=== PATIENT | female | born 1965 | race Caucasian/White ===

== ENCOUNTER 2020-02-01 12:18 | Outpatient (CLI) | payer BC, SELFPAY ==
--- NOTE | ~2020-02-01 | MMUS_ITS ---
EXAMINATION: MM diagnostic swapna BI w aleksandra, US breast BI complete HISTORY: Six-month follow-up targeted left breast ultrasound is recommended on 02/22/2019 bilateral d iagnostic and left complete ultrasound examinations. TECHNIQUE: Full field and spot ML, MLO and craniocaudal 3-D tomosynthesis images of both breasts were performed and synthetic 2-D images were generated. CAD analysis was submitted and interpreted. High resolution complete bilateral breast ultrasound was performed. COMPARISON: 02/22/2019 bilateral diagnostic mammography and left complete breast ultrasound 04/13/2018 bilateral diagnostic digital mammogram and complete left breast ultrasound 10/04/2017 and 02/21/2016 bilateral digital screening mammogram examinations BREAST PARENCHYMAL COMPOSITION: The breasts are heterogeneously dense, which may obscure small masses . FINDINGS: MAMMOGRAPHIC FINDINGS: No interval suspicious mass, architectural distortion, malignant calcification, skin thickening or re traction or significant new or developing density of either breast is evident. There are a few benign calcifications. ULTRASOUND: Right breast: At 2:00 near the nipple there is a tubular hypoechoic finding; there is an antiparallel component wit h mildly irregular margins. This finding measures up to 3.8 mm width and 14 mm length. Prominent vess els are noted nearby. Ultrasound-guided biopsy is recommended. Left breast: Stable probable septated cyst measuring 3 x 4.9 mm at 4:00 2 cm from nipple, unchanged s sammi 02/22/2019. At 5:00 1 cm from the nipple there is a 2.7 mm circumscribed hypoechoic lesion without internal vascu larity or suspicious shadowing. IMPRESSION: 1. Irregular hypoechoic area at right breast 2:00 near nipple, with mild irregularity, with antiparal lel configuration for portion of the lesion, with adjacent prominent vessels. This may be a soft tiss ue filled duct. Ultrasound guided biopsy is recommended to exclude malignancy. 2. Ultrasound-guided biopsy of right breast 2:00 hypoechoic tubular lesion near nipple BI-RADS category 4, suspicious findings. Dr. Bob telephoned the report and ultrasound guided biopsy recommendation of right breast 2:00 near nipple on 02/01/[address] Corrigan's Cloth Hand Patricia. Reviewed, dictated and finalized at location A. L DRILL PRESS OPERATOR IMPRESSION: 1. Irregular hypoechoic area at right breast 2:00 near nipple, with mild irregu larity, with antiparallel configuration for portion of the lesion, with adjacen t prominent vessels. This may be a soft tissue filled duct. Ultrasound guided b iopsy is recommended to exclude malignancy. 2. Ultrasound-guided biopsy of right breast 2:00 hypoechoic tubular lesion near nipple BI-RADS category 4, suspicious findings. Dr. Bob telephoned the report and ultrasound guided biopsy recommendation of r ight breast 2:00 near nipple on 02/01/[address] Corrigan's Medica l Cash Specialist Patricia.
== END 2020-02-01 12:19 | disposition home or self-care (01) ==
PROVIDERS: Visit Provider Obstetrics & Gynecology Gynecology
DX: N63.12 Unspecified lump in the right breast, upper inner quadrant (principal); N63.23 Unspecified lump in the left breast, lower outer quadrant
CPT/HCPCS: 76641; 77062; 77066; G0279

== ENCOUNTER → 2020-04-05 10:18 | Outpatient (CLI) | payer BC, SELFPAY ==
--- NOTE | ~2020-04-05 | DEXA_ITS ---
Bone Density Report Name: Sherrie Moreno Age: 54 Sex: Female Ethnicity: White Date of : 1965 Indication: postmenopausal; screening for osteoporosis; height loss; Referring Provider: LEROY ZIMMERMAN Study: Bone densitometry was performed. Exam Date: April 05, 2020 Accession number: [id number] Bone Density: Region BMD T-score Z-score Classification AP Spine (L1-L4) 0.905 -1.3 -0.3 Osteopenia Femoral Neck (Left) 0.821 -0.2 0.8 Normal Total Hip (Left) 1.027 0.7 1.3 Normal Femoral Neck (Right) 0.841 -0.1 0.9 Normal Total Hip (Right) 0.978 0.3 0.9 Normal Total Hip Mean 1.003 0.5 1.1 Normal World Health Organization criteria for BMD impression classify patients as: Normal (T-score at or above -1.0), Osteopenia (T-score between -1.0 and -2.5), or Osteoporosis (T-score at or below -2.5). 10-year Fracture Risk(1): Major Osteoporotic Fracture 4.7% Hip Fracture 0.1% Reported Risk Factors: [place] (), Neck BMD=0.821, BMI=34.9 (1) FRAX(R) Version 3.08. Fracture probability calculated for an untreated patient. Fracture probability may be lower if the patient has received treatment. Clinical Information Provided by Patient: Has used the following medications: Vitamin D Patient maximum height was 65.5 Menopause Age: 50 No regular weight bearing exercise Does not regularly consume dairy products Drinks caffeinated beverages Onset of menses at age 11 Number of children 3 Impression: The patient has low bone mass, based on the Total Spine T-score. The patient has an estimated ten-year risk of hip fracture of 0.1% and an estimated ten-year risk of major fracture of 4.7%, based on the WHO FRAX algorithm. Discussion: BONE DENSITY IS LOW AT ONE OR MORE SKELETAL SITES. This patient's lowest T-score is low at one or more skeletal sites. It meets the World Health Organization's (WHO) criteria for ?low bone mass? (T-score between -1.0 and -2.5). The patient's 10-year risk of fracture as calculated by FRAX is less than the threshold where pharmacological therapy is recommended by the National Osteoporosis Foundation (NOF). However, all treatment decisions require clinical judgment and consideration of individual patient factors, including patient preferences, comorbidities, previous drug use, risk factors not captured in the FRAX model (e.g., frailty, falls, vitamin D deficiency, increased bone turnover, interval significant decline in bone density) and possible under or overestimation of fracture risk by FRAX. The patient should follow a healthful lifestyle (good nutrition with adequate calcium and vitamin D, and appropriate weight-bearing exercise). Follow-Up: Consider repeating this study in 2 to 3 years to reassess this patient's status, or sooner if there is some new clinical indica
== END ==
PROVIDERS: PCP Family Medicine; Visit Provider Obstetrics & Gynecology Gynecology
DX: Z78.0 Asymptomatic menopausal state (principal); M85.88 Other specified disorders of bone density and structure, other site
CPT/HCPCS: 77080

== ENCOUNTER → 2021-08-09 14:52 | Outpatient (CLI) | payer BC, SELFPAY ==
--- NOTE | ~2021-08-09 | XR_ITS ---
XR hip RT min 3V w AP pelvis 08/09/2021 15:11 Indication: Right hip pain Procedure: 3 views right hip Comparison: No prior studies for comparison. Findings: No fracture, subluxation or dislocation. There is anatomic alignment. No significant joint space narrowing. Pelvic rings are intact. Sacral foramen are symmetric. Impression: 1: No significant bone or joint abnormality. Reviewed, dictated and finalized at location B. Impression: 1: No significant bone or joint abnormality.
== END ==
PROVIDERS: PCP Family Medicine; Visit Provider Family Medicine
DX: M25.551 Pain in right hip (principal)
CPT/HCPCS: 73502

== ENCOUNTER 2023-05-14 08:57 | Outpatient (CLI) | payer BC, SELFPAY ==
--- NOTE | ~2023-05-14 | DEXA_ITS ---
Bone Density Report Name: HALEIGH GARCIA Age: 57 Sex: Female Ethnicity: White Date of : 1965 Indication: osteopenia; height loss; postmenopausal Referring Provider: LEROY ZIMMERMAN Study: Bone densitometry was performed. Exam Date: May 14, 2023 Accession number: [id number] Bone Density: Region BMD T-score Z-score Classification AP Spine (L1, L2, L3) 0.930 -0.8 0.4 Normal Femoral Neck (Left) 0.834 -0.1 1.0 Normal Total Hip (Left) 1.024 0.7 1.5 Normal Femoral Neck (Right) 0.791 -0.5 0.6 Normal Total Hip (Right) 0.948 0.0 0.8 Normal Total Hip Mean 0.986 0.4 1.2 Normal World Health Organization criteria for BMD impression classify patients as: Normal (T-score at or above -1.0), Osteopenia (T-score between -1.0 and -2.5), or Osteoporosis (T-score at or below -2.5). 10-year Fracture Risk: FRAX not reported because: All T-scores for Spine Total, Hip Total, Femoral Neck at or above -1.0 Previous Exams: Region Exam Age BMD T-score BMD Change BMD Change Date g/cm2 vs Baseline vs Previous AP Spine(L1, L2, L3) 05/14/2023 57 0.930 -0.8 0.068* 0.068* 04/05/2020 54 0.862 -1.4 Total Hip(Left) 05/14/2023 57 1.024 0.7 -0.003 -0.003 04/05/2020 54 1.027 0.7 Total Hip(Right) 05/14/2023 57 0.948 0.0 -0.031* -0.031* 04/05/2020 54 0.978 0.3 *Denotes significance at 95% confidence level, LSC for AP Spine = 0.022 g/cm2, LSC for Total Hip = 0.027 g/cm2 Clinical Information Provided by Patient: Has used the following medications: Vitamin D, ESTRADIOL VAGINAL TABLET Patient maximum height was 65.5 Menopause Age: 51 No regular weight bearing exercise Drinks caffeinated beverages Onset of menses at age 11 Number of children 3 Impression: The patient has normal bone mass. The BMD for the Total Hip(Right) decreased, changing by -0.031 since the last DXA exam. Discussion: BONE DENSITY IS ABOVE THE MINIMUM DESIRABLE LEVEL AT ALL SKELETAL SITES TESTED. This patient?s bone mineral density is above the minimum desirable level (T-score -1.0 or better) at all sites measured. The patient should follow a healthful lifestyle (good nutrition with adequate calcium and vitamin D, and appropriate weight-bearing exercise). Follow-Up: Consider repeating this study in 3 to 4 years to reassess this patient's status, or sooner if there is some new clinical indication. Reported by: ESTHER on
== END 2023-05-14 08:58 ==
LOC: MICIMG 08:58
PROVIDERS: PCP Family Medicine; Visit Provider Obstetrics & Gynecology Gynecology
DX: M85.80 Other specified disorders of bone density and structure, unspecified site (principal); R29.890 Loss of height; Z78.0 Asymptomatic menopausal state
CPT/HCPCS: 77080

== ENCOUNTER 2024-02-06 11:59 | Emergency (ER) | payer BC, SELFPAY ==
--- NOTE | ~2024-02-06 | XR_ITS ---
EXAMINATION: XR elbow RT min 3V DATE: 02/06/2024 13:17 INDICATION: Right elbow injury. Fall. TECHNIQUE: 4 views of right elbow were obtained. COMPARISON: None. FINDINGS: Alignment is normal. No fracture. There is an enthesophyte at the lateral humeral epicondyl e. Joint spaces are normal. No elbow joint effusion. There is soft tissue swelling overlying olecrano n. IMPRESSION: 1. No fracture. Reviewed, dictated and finalized at location A. STIGATIONS CONSULTANT IMPRESSION: 1. No fracture.
[2024-02-06 12:07] VITALS: BP 118/88; PULSE 76; RESP 18; TEMP 37.2; O2SAT 97
--- NOTE | 2024-02-06 12:59 | ED.SKABFB ---
HPI - Skin/Abscess/Foreign Bdy General Chief complaint: Skin/Abscess/Foreign Body Stated complaint: Right Arm Laceration Time Seen by Provider: 02/06/24 13:45 Source: patient, RN notes reviewed and old records reviewed Mode of arrival: ambulatory Limitations: no limitations History of Present Illness HPI narrative: Patient presents with complaints of wound with swelling and drainage to the right elbow. She reports that she fell earlier this week, landed on the right elbow, sustained an abrasion. Says that she is now having increased pain, swelling, redness, drainage. She denies any fever, chills, sweats. She denies other injury and trauma. She is able to move the affected extremity with out difficulty. She does report that this does increase pain. She has been taking Tylenol intermittently for symptoms with moderate relief. Related Data Home Medications Medication Instructions Recorded Confirmed estradiol 10 mcg vaginal tablet 10 mcg vaginal DIRECTED 08/13/23 02/06/24 tirzepatide 2.5 mg/0.5 mL 2.5 mg subcut WEEKLY 08/13/23 02/06/24 subcutaneous pen injector Allergies Allergy/AdvReac Type Severity Reaction Status Date / Time No Known Allergies Allergy Verified 02/06/24 12:06 Review of Systems Review of Systems: All systems reviewed & are unremarkable except as noted in HPI and below Constitutional: Constitutional: Reports no additional constitutional complaints ENT: Reports system reviewed and no additional complaints, except as documented Cardiovascular: Cardiovascular: Reports no additional cardiovascular complaints Respiratory: Respiratory: Reports no additional respiratory complaints Gastrointestinal: Gastrointestinal: Reports no additional gastrointestinal complaints Musculoskeletal: Musculoskeletal: Reports as per HPI Integumentary/Breasts: Skin/Breast: Reports as per HPI, Reports erythema and Reports wounds PMFSH Past Medical History Medical History COVID-19 Lichen planus Post-COVID syndrome Family History Family History Grandparent Hypertension Family history of cardiovascular disease Family history of Alzheimer's disease Family history of malignant neoplasm of breast Father Brain cancer Other Family history of arthritis Family history of premature coronary heart disease Social History Social History Social History: Caffeine-daily Smoking status: Never smoker Alcohol intake: current Alcohol use details: occasionally Substance use: never Substance use type: does not use Lack of Transportation: No Lack of Food: Never True Current Housing: I Have Housing Concerned About Future Housing: No Difficulty Paying Gas/Electric Bills: No Difficulty Paying for Meds: No Currently Unemployed: No Education: Bachelor's Degree Difficulty w/ Childcare or Family Care: No Comments At the time of my signature, I reviewed and agree with the nursing past medical, surgical, social, and family history. There is no relevant family history pertinent to the patient complaint. Exam Const: General: cooperative, no acute distress, alert and awake Orientation/consciousness: oriented to person, oriented to place and oriented to time HENMT: Head: normal to inspection Resp: Effort & Inspection: normal respiratory effort and able to speak in complete sentences Auscultation: clear to auscultation bilaterally, no crackles, no rales, no rhonchi and no wheezes Cardio: Palpation: normal PMI Rate: regular rate Rhythm: regular rhythm Heart sounds: S1 normal heart sound present and S2 normal heart sound present Skin: Full body images: 1. 1 cm open wound, purulent drainage noted, bruising and erythema extend beyond the wound margins. Full range of motion to the affected elbow Neuro: General: oriented to person, oriented to place and oriented to time Cranial nerves: Yes CN's II-XII intact bilaterally Psych: Appearance: grossly normal Thought process: Normal thought process present Insight: Good insight present (Psych) Judgement: Good judgement present (Psych) Course Course Level of Care: Express Care Visit Vital Signs Vital signs: Vital Signs Temperature 98.9 F 02/06/24 12:07 Pulse Rate 76 02/06/24 12:07 Respiratory Rate 18 02/06/24 12:07 Blood Pressure 118/88 02/06/24 12:07 Pulse Oximetry 97 02/06/24 12:07 Oxygen Delivery Room Air 02/06/24 12:07 Temperature 98.9 F 02/06/24 12:07 Pulse Rate 76 02/06/24 12:07 Respiratory Rate 18 02/06/24 12:07 Blood Pressure 118/88 02/06/24 12:07 Pulse Oximetry 97 02/06/24 12:07 Oxygen Delivery Room Air 02/06/24 12:07 Reviewed MDM - Skin/Abscess/Foreign Bdy MDM Narrative Medical decision making narrative: Patient with cellulitis to the right elbow, nontoxic appearing, negative x-ray. Stable for discharge home on p.o. antibiotic therapy. Emergency precautions discussed. Discharge instructions reviewed with patient, as well as provided in writing per nursing staff. The instructions also include specific and strict return/GO TO THE ER as well as f/u information. All questions have been answered, and the patient deny any further questions with discharge and discharge plan. Some parts of this dictation were generated by voice recognition software and may contain typographical and/or grammatical inaccuracies. Differential Diagnosis Differential diagnosis: Likely abscess of skin or subcutaneous tissue and cellulitis Medical Records Attestation: I reviewed the patient's medical records. Imaging Data Attestation: I personally reviewed and interpreted this imaging study as follows: My impression: No fracture Radiologist's impression: [facility] [address] [place] [address] XRay Report Signed Patient: Sherrie Moreno : 1965 MR#: [id number] Age: 58 Acct:[id number] Loc: [facility] ADM Date: 02/06/24Attending Dr: Ordering Physician: Shannon Ward FNP Date of Service: 02/06/24 Procedure(s): XR elbow RT min 3V Accession Number(s): [id number] cc: Shannon Ward FNP; Vikas Delaney MD~ EXAMINATION: XR elbow RT min 3V DATE: 02/06/2024 13:17 INDICATION: Right elbow injury. Fall. TECHNIQUE: 4 views of right elbow were obtained. COMPARISON: None. FINDINGS: Alignment is normal. No fracture. There is an enthesophyte at the lateral humeral epicondyle. Joint spaces are normal. No elbow joint effusion. There is soft tissue swelling overlying olecranon. IMPRESSION: 1. No fracture. Reviewed, dictated and finalized at location A. INTEGRATION DEVELOPER Dictated By: William Haile MD 02/06/24 1333 Signed By: <Electronically signed by William Haile MD in OV> 02/06/24 1334 Discharge Plan Discharge Clinical Impression: Cellulitis Qualifiers: Site of cellulitis: extremity Site of cellulitis of extremity: upper extremity Laterality: right Qualified Code(s): L03.113 - Cellulitis of right upper limb Patient Disposition: Home, Self-Care Condition: Stable Instructions: Antibiotic Form, Cellulitis (ED) Additional Instructions: Take medications as prescribed. Follow with primary care provider. Emergency department for new or worse symptoms Patient Language: [place] Prescriptions: New doxycycline hyclate 100 mg capsule 100 mg PO BID Qty: 20 0RF No Action tirzepatide 2.5 mg/0.5 mL pen injector 2.5 mg subcut WEEKLY estradiol 10 mcg tablet 10 mcg vaginal DIRECTED olmesartan-hydrochlorothiazide 20-12.5 mg tablet 1 tablet PO DAILY Qty: 90 1RF fluoxetine 40 mg capsule 40 mg PO QAM Qty: 90 1RF scopolamine base [Transderm-Scop] 1 mg over 3 days patch 3 day 1 patch transdermal Q3D PRN (Reason: motion sickness) Qty: 4 1RF omeprazole 40 mg capsule,delayed release(DR/EC) 80 mg PO DAILY Qty: 180 1RF hydrocodone-acetaminophen 5-325 mg tablet 1 tablet PO Q12H PRN (Reason: pain) Qty: 60 0RF Rx Instructions: December Follow-up/Referrals: Vikas Delaney MD [Primary Care Provider] - 3 Days Time of Disposition: 13:51
[2024-02-06] MEDS: TETANUS,DIPHTHERIA,AC PERTUSSIS ADULT (0.5 ML) BOOSTRIX IM (14:00)
== END 2024-02-06 14:43 | disposition home or self-care (01) ==
PROVIDERS: Emergency Provider Nurse Practitioner Family; PCP Family Medicine
DX: L03.113 Cellulitis of right upper limb (principal); Z23 Encounter for immunization; L43.9 Lichen planus, unspecified; Z86.16 Personal history of COVID-19
CPT/HCPCS: 73080; 90471; 90715; 99213; G0463